=== PATIENT | male | born 1990 | race African-American/Black ===

== ENCOUNTER 2019-07-23 21:16 | Emergency (ER) | payer OTHER ==
[~2019-07-23] VITALS: Ht 175.3 cm; Wt 72.6 kg
--- NOTE | 2019-07-23 21:20 | NUR ---
PT CAME TO THE ED C/O SI W/ A PLAN TO CUT HIMSELF W/ A KNIFE. PT DENIES ANY DRUG USE. -HI. PT AAOX4, RESPIRATIONS EVEN AND UNLABORED ON RA W/ NAD NOTED. PT CHANGED INTO GOWN, BELONGINGS PLACED TO LOCKER, SECURITY AT BEDSIDE FOR WANDING. ON SUICIDE PRECAUTIONS. SITTER AT BEDSIDE FOR SAFETY
--- NOTE | 2019-07-23 21:45 | NUR ---
URINE COLLECTED AND SENT TO LAB
--- NOTE | 2019-07-23 21:56 | NUR ---
SECURITY AT BEDSIDE FOR WANDING
[2019-07-23 22:00] LABS: BASOPHILS % (AUTO) 0.9 % (0.0-2.0); EOSINOPHILS % (AUTO) 3.4 % (0.0-6.0); HEMATOCRIT 42 % (39-51); LYMPHOCYTES # (AUTO) 2.5 /CMM (0.8-4.8); LYMPHOCYTES % (AUTO) 48.9 % (20.0-44.0); MEAN CORPUSCULAR HGB CONC 33 g/dl (31.0-36.0); MEAN CORPUSCULAR VOLUME 91 fL (80-96); MONOCYTES # (AUTO) 0.5 /CMM (0.1-1.30); MONOCYTES % (AUTO) 9.1 % (2.0-12.0); NEUTROPHILS # (AUTO) 1.9 /CMM (1.8-8.9); NEUTROPHILS % (AUTO) 37.7 % (43.0-81.0); PLATELET COUNT (AUTO) 391 /CMM (150-450); RED BLOOD CELL COUNT(AUTO) 4.62 MIL/uL (4.5-6.0)
[2019-07-23 22:01] LABS: APPEARANCE,URINE CLEAR (CLEAR); BILIRUBIN,URINE NEGATIVE (NEGATIVE); BLOOD, URINE NEGATIVE Ery/uL (NEGATIVE); COLOR,URINE YELLOW (YELLOW); KETONES,URINE NEGATIVE (NEGATIVE); LEUKOCYTE ESTERASE ,URINE TRACE (NEGATIVE); NITRITE, URINE NEGATIVE (NEGATIVE); PROTEIN,URINE NEGATIVE (NEGATIVE); UGLUCOSE NEGATIVE (NEGATIVE); UROBILINOGEN,URINE 0.2 EU/dL (0.2)
[2019-07-23 22:09] LABS: CALCIUM, SERUM 8.1 mg/dL (8.5-10.1); CARBON DIOXIDE 30 mmol/L (21-32); CHLORIDE 103 mmol/L (98-107); GLUCOSE 115 mg/dL (74-106); SODIUM SERUM 139 mmol/L (136-145); UREA NITROGEN, BLOOD 13 mg/dL (7-18)
[2019-07-23 22:10] LABS: BACTERIA,URINE 1+ /HPF (None Seen); SQUAMOUS EPITHELIAL CELL,UR 0-2 /HPF (None Seen)
[2019-07-23 22:13] LABS: ALANINE AMINOTRANSFERASE 37 U/L (12-78); ALBUMIN 3.6 g/dL (3.4-5.0); ALKALINE PHOSPHATASE 93 U/L (46-116); ASPARTATE AMINOTRANSFERASE 24 U/L (15-37); BILIRUBIN,DIRECT 0.1 mg/dL (0.0-0.2); BILIRUBIN,TOTAL 0.5 mg/dL (0.2-1.0); TOTAL PROTEIN, SERUM 6.9 g/dL (6.4-8.2)
[2019-07-23 22:14] LABS: ACETAMINOPHEN 0 ug/ml (10-30); ALCOHOL, BLOOD < 3 mg/dL (0-0); SALICYLATE 1.2 mg/dL (2.8-20.0)
[2019-07-23] MEDS ORDERED: CEPHALEXIN MONOHYDRATE 500 MG CAPSULE PO ONE ×2 (22:15→22:30)
--- NOTE | 2019-07-23 22:38 | NUR ---
CLINICAL FAXED TO [facility] FOR VOLUNTARY PSYCH ADMISSION.
--- NOTE | 2019-07-24 00:12 | NUR ---
PT ACCEPTED AT [facility] PHONE NUMBER FOR REPORT EXT [phone] ACCEPTING DANIELLE/CHARLIE CALL REPORT TO ROBBY ALSTON
--- NOTE | 2019-07-24 00:36 | NUR ---
REPORT GIVEN TO ROBBY LARA [facility]
--- NOTE | 2019-07-24 00:43 | NUR ---
[facility] CALLED FOR BLS TRANSPORT. [facility] ETA 60-90 MINUTES.
[2019-07-24 02:18] VITALS: BP 142/79
--- NOTE | 2019-07-24 03:14 | NUR ---
PT WAS TRANSFERRED TO [facility] IN STABLE CONDITION.
== END 2019-07-24 03:18 | disposition short-term general hospital (02) ==
LOC: ER 21:19
DX: R45.851 Suicidal ideations (principal); N39.0 Urinary tract infection, site not specified; F19.10 Other psychoactive substance abuse, uncomplicated; F20.9 Schizophrenia, unspecified
CPT/HCPCS: 36415; 80048; 80076; 80305; 80307; 80329; 81001; 85025; 87086; 99285; G0480; 81000-TC

== ENCOUNTER 2020-03-02 02:29 | Emergency (ER) | payer OTHER ==
[~2020-03-02] VITALS: Ht 175.3 cm; Wt 72.6 kg
--- NOTE | 2020-03-02 02:40 | NUR ---
BIBS FOR C/O SI PLANNING TO CUT HIS WRIST. DENIED HI. PT AMBULATORY TO THE CHAIR. BELONGINGS WERE TAKEN AWAY FOR SAFETY, SI PRECAUTION IN PLACE AND REMAINED UNDER CLOSE SUPERVISION. VSS. WILL CONT TO MONITOR ,
--- NOTE | 2020-03-02 02:59 | NUR ---
COVID SWAB COLLECTED AND SENT TO LAB
--- NOTE | 2020-03-02 03:21 | NUR ---
PT PROVIDED WITH JUICE AND SNACKS PER REQUEST
[2020-03-02 03:27] LABS: BASOPHILS # (AUTO) 0.2 /CMM (0.0-0.2); BASOPHILS % (AUTO) 2.3 % (0.0-2.0); HEMATOCRIT 41 % (39-51); HEMOGLOBIN 13.6 g/dL (13.5-17.5); LYMPHOCYTES # (AUTO) 1.5 /CMM (0.8-4.8); LYMPHOCYTES % (AUTO) 23.5 % (20.0-44.0); MEAN CORPUSCULAR HGB CONC 33 g/dl (31.0-36.0); MEAN CORPUSCULAR VOLUME 93 fL (80-96); MONOCYTES # (AUTO) 0.5 /CMM (0.1-1.30); MONOCYTES % (AUTO) 7.3 % (2.0-12.0); NEUTROPHILS # (AUTO) 4.2 /CMM (1.8-8.9); NEUTROPHILS % (AUTO) 65.9 % (43.0-81.0); PLATELET COUNT (AUTO) 523 /CMM (150-450); RED BLOOD CELL COUNT(AUTO) 4.47 MIL/uL (4.5-6.0); WHITE BLOOD COUNT (AUTO) 6.4 K/uL (4.3-11.0)
[2020-03-02 03:34] LABS: CALCIUM, SERUM 8.6 mg/dL (8.5-10.1); CARBON DIOXIDE 30 mmol/L (21-32); CHLORIDE 101 mmol/L (98-107); CREATININE 0.9 mg/dL (0.6-1.3); GLUCOSE 117 mg/dL (74-106); POTASSIUM 3.6 mmol/L (3.5-5.1); SODIUM SERUM 137 mmol/L (136-145); UREA NITROGEN, BLOOD 17 mg/dL (7-18)
[2020-03-02 03:39] LABS: ALANINE AMINOTRANSFERASE 101 U/L (12-78); ALBUMIN 3.5 g/dL (3.4-5.0); ALCOHOL, BLOOD < 3 mg/dL (0-0); ALKALINE PHOSPHATASE 90 U/L (46-116); ASPARTATE AMINOTRANSFERASE 190 U/L (15-37); BILIRUBIN,DIRECT 0.4 mg/dL (0.0-0.2); BILIRUBIN,TOTAL 1.5 mg/dL (0.2-1.0)
[2020-03-02 03:42] LABS: ACETAMINOPHEN 0 ug/ml (10-30)
--- NOTE | 2020-03-02 03:46 | NUR ---
REC'D NEG COVID RESULTS. AWARE
[2020-03-02 06:03] LABS: BILIRUBIN,URINE NEGATIVE (NEGATIVE); COLOR,URINE YELLOW (YELLOW); LEUKOCYTE ESTERASE ,URINE NEGATIVE (NEGATIVE); NITRITE, URINE NEGATIVE (NEGATIVE); PROTEIN,URINE NEGATIVE (NEGATIVE); UGLUCOSE NEGATIVE (NEGATIVE); UROBILINOGEN,URINE 0.2 EU/dL (0.2)
--- NOTE | 2020-03-02 06:36 | NUR ---
CLINICAL FAXED TO [facility] FOR VOLUNTARY PSYCH ADMISSION.
--- NOTE | 2020-03-02 08:13 | NUR ---
[facility] ACCEPTED UNDER THE CARE OF DR. DIOR/KALEIGH. NUMBER FOR REPORT [phone] [facility]. ROOM AND INFO WILL BE GIVEN UPON NURSE TO NURSE REPORT.
--- NOTE | 2020-03-02 09:04 | NUR ---
CALLED [facility] FOR TRANSPORT. NO ETA PROVIDED. WILL CALL BACK WHEN ETA IS AVAILABLE. TRIP NUMBER [id number].
--- NOTE | 2020-03-02 10:54 | NUR ---
Breakfast served Ate 100%. NO obvious distress noted await transfer to psych
--- NOTE | 2020-03-02 13:17 | NUR ---
Still awaiting transport from [facility]. NO acute changes NO distress. Dozing on/off
--- NOTE | 2020-03-02 13:36 | NUR ---
TRIP NUMBER [id number].
--- NOTE | 2020-03-02 13:38 | NUR ---
CALLED [facility] THE CAR, AT THE MOMENT NO ETA GIVEN. WILL CALL [facility].
--- NOTE | 2020-03-02 13:43 | NUR ---
[facility] IS THE TRANSPORT COMPANY. ETA GIVEN 45 MINUTES.
[2020-03-02 15:01] VITALS: BP 139/87
--- NOTE | 2020-03-02 15:02 | NUR ---
[facility] [address] Here for transport Report to EMT Thomas. Pt cooperative/voluntary admit to psych
== END 2020-03-02 15:02 ==
LOC: ER 02:31
DX: R45.851 Suicidal ideations (principal); F20.9 Schizophrenia, unspecified; Z20.822 Contact with and (suspected) exposure to COVID-19
CPT/HCPCS: 36415; 80048; 80076; 80299; 80307; 80320; 81003; 85025; 87426; 99285; C9803; G0480